=== PATIENT | female | born 1990 | race Caucasian/White ===

== ENCOUNTER 2017-10-21 17:09 | Emergency (ER) | payer OTHER ==
[~2017-10-21] VITALS: Ht 157.5 cm; Wt 110.8 kg
[~2017-10-21 17:09] MED LIST: LEXAPRO20 MG PO; MACROBID 1100 MG/CAP PO; PHENERGAN 25 TA25 MG PO; PHENERGAN12.5 MG/SU RC; PROMETHAZINE12.5 M5 PO; VYVANSE20 MG PO; YAZ 28 3 MG-0.01 TAB; ZOFRAN 4MG T4 MG/TAB PO
[2017-10-21 17:13] VITALS: TEMP 98
[2017-10-21 18:25] LABS: COLLECTION METHOD CLEAN CATCH
[2017-10-21 18:32] LABS: HEMATOCRIT 46.2 % (37.0-47.0); HEMOGLOBIN 15.4 g/dl (12.5-16.0); MEAN CELL VOLUME 85 fl (80.0-100.0); MEAN CORPUSCULAR HEMOGLOBIN 29 pg (27.0-31.0); MEAN CORPUSCULAR HGB CONC 33 g/dl (33.0-37.0); MEAN PLATELET VOLUME 10.2 fl (7.4-10.4); PLATELET COUNT 357 K/mm3 (130-400); RED BLOOD COUNT 5.41 M/mm3 (4.10-5.30); WHITE BLOOD COUNT 14.2 K/mm3 (4.8-10.8)
[2017-10-21 18:33] LABS: BASO % 0.3 % (0.0-2.0); EOS # 0.1 (0.0-0.7); GRAN # 10.6 (1.4-6.5); GRAN % 74.8 % (42.2-75.2); LYMPH # 2.5 (1.2-3.4); LYMPH % 17.4 % (20.0-51.0); MONO # 0.9 (0.1-0.6); MONO % 6.1 % (1.7-9.3)
[2017-10-21 18:36] LABS: MUCOUS Present /lpf; PH 5 (5-8); URINE APPEARANCE Hazy; URINE BACTERIA Rare /hpf; URINE BILIRUBIN Negative (NEGATIVE); URINE BLOOD 1+ (NEGATIVE); URINE COLOR Yellow; URINE GLUCOSE Negative (NEGATIVE); URINE KETONE Trace (NEGATIVE); URINE LEUKOCYTE ESTERASE 2+ (NEGATIVE); URINE PROTEIN(semi-quant) 1+ (NEGATIVE)
[2017-10-21 18:40] LABS: ALBUMIN 5.2 gm/dL (3.5-5.0); BILIRUBIN,TOTAL 0.6 mg/dL (0.0-1.0); C-REACTIVE PROTEIN 0.6 mg/dL (0.0-0.9); CREATININE, serum 0.92 mg/dL (0.52-1.25); POTASSIUM 3.7 mmol/L (3.4-5.0); TOTAL PROTEIN 8.6 gm/dL (6.4-8.2)
[2017-10-21] MEDS ORDERED: CEFTIN500 MG PO (20:29)
[2017-10-21] MEDS ORDERED: PHENERGAN 25 TA25 MG PO (20:29)
[2017-10-21 20:45] VITALS: BP 131/85; PULSE 86
== END 2017-10-21 20:55 | disposition home or self-care (01) ==
LOC: COL.ER 17:09
PROVIDERS: Emergency Medicine
DX: N39.0 Urinary tract infection, site not specified (principal)
CPT/HCPCS: J0696; J1170; J1885; J2405; J2550; J7030

== ENCOUNTER 2019-05-24 21:18 | Emergency (ER) | payer OTHER ==
[~2019-05-24] VITALS: Ht 162.6 cm; Wt 127.3 kg
[~2019-05-24 21:18] MED LIST changes: +CEFTIN500 MG PO
[2019-05-24 21:23] VITALS: BP 143/91; TEMP 98.6
[2019-05-24] MEDS ORDERED: SINGULAIR 110 MG/TAB PO (21:34)
[2019-05-24] MEDS ORDERED: JULEBER 28 DAY1 EACH PO (21:36)
[2019-05-24 23:01] VITALS: PULSE 85
== END 2019-05-24 23:02 | disposition home or self-care (01) ==
LOC: COL.ER 21:18
DX: S83.004A Unspecified dislocation of right patella, initial encounter (principal); Z88.0 Allergy status to penicillin; Z87.891 Personal history of nicotine dependence; X50.1XXA Overexertion from prolonged static or awkward postures, initial encounter
CPT/HCPCS: L1846

== ENCOUNTER → 2022-08-13 | Outpatient (CLI) | payer OTHER ==
[~2022-08-13] MED LIST changes: +JULEBER 28 DAY1 EACH PO; +SINGULAIR 110 MG/TAB PO
== END ==
LOC: MC.RAD 14:00
DX: N63.12 Unspecified lump in the right breast, upper inner quadrant (principal)

== ENCOUNTER 2024-06-27 09:09 | Emergency (ER) | payer MEDICAID ==
[~2024-06-27] VITALS: Ht 162.6 cm; Wt 109.1 kg
[2024-06-27 09:18] VITALS: TEMP 97.3
[2024-06-27] MEDS ORDERED: NS 1,000 ML IV ONE (09:30)
[2024-06-27] MEDS ORDERED: Ondansetron 4 MG/2 ML VIAL IV ONE (09:30)
[2024-06-27 09:58] LABS: BASO % 0.3 % (0.0-2.0); EOS % 0.1 % (0.0-4.0); GRAN % 87.4 % (42.2-75.2); HEMATOCRIT 40.3 % (37.0-47.0); HEMOGLOBIN 13.9 g/dl (12.5-16.0); LYMPH # 1.3 K/mm3 (1.2-3.4); LYMPH % 8.6 % (20.0-51.0); MEAN CELL VOLUME 83 fl (80.0-100.0); MEAN CORPUSCULAR HEMOGLOBIN 29 pg (27-31); MEAN CORPUSCULAR HGB CONC 35 g/dl (33.0-37.0); MEAN PLATELET VOLUME 9.9 fl (7.4-10.4); MONO # 0.5 K/mm3 (0.1-0.6); MONO % 3.1 % (1.7-9.3); PLATELET COUNT 349 K/mm3 (130-400); RED BLOOD COUNT 4.88 M/mm3 (4.10-5.30); REDCELL DISTRIBUTION WIDTH-CV 13.2 % (11.5-14.5)
[2024-06-27 10:21] LABS: CREATININE, serum 0.82 mg/dL (0.57-1.11); POTASSIUM 3.3 mEq/L (3.5-4.5); TOTAL PROTEIN 7.8 g/dl (6.2-8.1)
[2024-06-27 10:36] LABS: BILIRUBIN,TOTAL 0.6 mg/dL (0.2-1.2)
[2024-06-27] MEDS ORDERED: ZOFRAN ODT4 MG PO (12:16)
[2024-06-27 12:32] VITALS: BP 117/76; PULSE 61
[2024-06-28] MEDS ORDERED: PHENERGAN 25 TA25 MG RC (14:54)
[2024-06-28] MEDS ORDERED: MACROBID 1100 MG/CAP PO (14:54)
== END 2024-06-27 12:33 | disposition home or self-care (01) ==
LOC: COL.ER 09:09
PROVIDERS: Emergency Medicine
DX: O21.9 Vomiting of pregnancy, unspecified (principal); O99.281 Endocrine, nutritional and metabolic diseases complicating pregnancy, first trimester; E87.6 Hypokalemia
CPT/HCPCS: J2405; J7030

== ENCOUNTER 2024-06-28 12:04 | Emergency (ER) | payer MEDICAID ==
[~2024-06-28] VITALS: Ht 162.6 cm; Wt 109.1 kg
[~2024-06-28 12:04] MED LIST changes: +ZOFRAN ODT4 MG PO
[2024-06-28 12:11] VITALS: TEMP 97.8
[2024-06-28] MEDS ORDERED: NS 1,000 ML IV ONE (12:45)
[2024-06-28] MEDS ORDERED: Ondansetron 4 MG/2 ML VIAL IV ONE (12:45)
[2024-06-28 12:57] LABS: BASO # 0.1 K/mm3 (0.0-0.2); BASO % 0.4 % (0.0-2.0); EOS % 0.1 % (0.0-4.0); GRAN # 11.2 K/mm3 (1.4-6.5); GRAN % 81.8 % (42.2-75.2); HEMATOCRIT 38.3 % (37.0-47.0); HEMOGLOBIN 12.8 g/dl (12.5-16.0); LYMPH # 1.7 K/mm3 (1.2-3.4); LYMPH % 12.6 % (20.0-51.0); MEAN CELL VOLUME 85 fl (80.0-100.0); MEAN CORPUSCULAR HEMOGLOBIN 28 pg (27-31); MEAN CORPUSCULAR HGB CONC 33 g/dl (33.0-37.0); MONO # 0.7 K/mm3 (0.1-0.6); MONO % 4.7 % (1.7-9.3); PLATELET COUNT 317 K/mm3 (130-400); RED BLOOD COUNT 4.53 M/mm3 (4.10-5.30); REDCELL DISTRIBUTION WIDTH-CV 13.4 % (11.5-14.5)
[2024-06-28 13:15] LABS: ALBUMIN 3.7 g/dL (3.5-5.0); BILIRUBIN,TOTAL 0.5 mg/dL (0.2-1.2); CALCIUM 9.3 mg/dL (8.4-10.2); CREATININE, serum 0.82 mg/dL (0.57-1.11); POTASSIUM 3.4 mEq/L (3.5-4.5); TOTAL PROTEIN 7.2 g/dl (6.2-8.1)
[2024-06-28 13:53] LABS: COLLECTION METHOD CLEAN CATCH
[2024-06-28 14:00] LABS: PH 7.5 (5.0-8.5); URINE APPEARANCE CLOUDY (CLEAR/HAZY); URINE BLOOD TRACE (NEGATIVE); URINE COLOR YELLOW (YELLOW); URINE GLUCOSE NEGATIVE (NEGATIVE); URINE KETONE 3+ (NEGATIVE); URINE NITRATE NEGATIVE (NEGATIVE); URINE PROTEIN(semi-quant) TRACE (NEGATIVE)
[2024-06-28] MEDS ORDERED: Promethazine 50 MG/ML 1 ML VIAL IM ONE (14:00)
[2024-06-28] MEDS ORDERED: D5NS 1,000 ML IV ONE (14:15)
[2024-06-28] MEDS ORDERED: MACROBID 1100 MG/CAP PO (14:54)
[2024-06-28] MEDS ORDERED: PHENERGAN 25 TA25 MG RC (14:54)
[2024-06-28 15:00] VITALS: BP 109/75; PULSE 64
== END 2024-06-28 15:00 | disposition home or self-care (01) ==
LOC: COL.ER 12:04
PROVIDERS: Emergency Medicine
DX: O21.0 Mild hyperemesis gravidarum (principal); O99.891 Other specified diseases and conditions complicating pregnancy; R82.71 Bacteriuria
CPT/HCPCS: J2405; J2550; J7030; J7042